=== PATIENT | female | born 1975 | race Caucasian/White ===

== ENCOUNTER 2020-08-31 14:41 | Inpatient (IN) ==
[2020-08-31] MEDS ORDERED: 0.9 % Sodium Chloride 1,000 ML IVC ONE (14:55)
[2020-08-31] MEDS ORDERED: Morphine Sulfate 2 MG/ML SYRINGE IVP ONE (15:05)
[2020-08-31] MEDS ORDERED: Isovue-370 500 ML BOTTLE IVP ONE (15:09)
[2020-08-31 15:15] LABS: Basophils % 0.4 %; Eosinophils # 0.3 K/mcL (0.0-0.6); Eosinophils % 3.2 %; Hemoglobin 13.7 g/dL (11.5-15.4); Immature Granulocytes % 0.4 % (0-4); Lymphocytes # 2.2 K/mcL (0.6-4.6); Lymphocytes % 22.2 %; Mean Corpuscular HGB Conc 33.4 g/dL (31.6-35.5); Mean Corpuscular Hemoglobin 31.4 pg (28.0-33.3); Mean Corpuscular Volume 93.8 fL (83.0-100.0); Mean Platelet Volume 9.7 fL (9.4-12.4); Monocytes # 0.8 K/mcL (0.0-1.3); Monocytes % 7.9 %; Neutrophils # 6.4 K/mcL (1.6-8.9); Platelet Count 214 K/mcL (140-400); Red Blood Count 4.37 M/mcL (3.82-4.97); Red Cell Distribution Width 13.8 % (11.5-14.5); Segmented Neutrophils % 65.9 %; White Blood Count 9.7 K/mcL (4.3-11.1)
[2020-08-31 15:23] LABS: INR 1.1; Prothrombin Time 12.7 Seconds (9.4-12.1)
[2020-08-31 15:26] LABS: Activated Partial Thrombo Time 31.2 Seconds (26.0-36.0)
[2020-08-31 15:51] LABS: Alanine Aminotransferase 29 Units/L (7-52); Albumin 4.3 g/dL (3.5-5.7); Albumin/Globulin Ratio 1.4 (1.1-2.2); Alkaline Phosphatase 129 Units/L (34-104); Aspartate Amino Transferase 24 Units/L (13-39); BUN/Creatinine Ratio 13 (6-26); Bilirubin,Indirect 0.4 mg/dL (0.0-1.0); Bilirubin,Total 0.4 mg/dL (0.3-1.0); Blood Urea Nitrogen 9 mg/dL (6-20); Calcium 9.5 mg/dL (8.6-10.3); Carbon Dioxide 26 mEq/L (23-29); Chloride 103 mEq/L (98-107); Globulin 3.1 g/dL (2.4-3.5); Glucose 154 mg/dL (70-105); Lipase 36 Units/L (11-82); Osmolality,Calculated 288 (280-300); Potassium 3.4 mEq/L (3.5-5.1); Sodium 138 mEq/L (136-145); Total Protein 7.4 g/dL (6.4-8.9); Troponin I < 0.03 ng/mL (< 0.04); eGFR For African Americans > 60 (> 60); eGFR For Non-African Americans > 60 (> 60)
[2020-08-31 16:37] LABS: Bacteria,Urine Few per hpf (None-Few); Mucus,Urine Few per lpf (None-Few); RBC,Urine 0-3 per hpf (0-3); Squamous Epithelial Cell,Urine Few per hpf (None-Few)
[2020-08-31 16:39] LABS: Bilirubin,Urine Negative (Negative); Clarity,Urine Clear (Clear); Color,Urine Yellow (Yellow); Glucose,Urine (UA) Normal (Normal); Ketones,Urine Negative (Negative); Specific Gravity,Urine 1.024 (1.010-1.025)
[2020-08-31 16:40] LABS: Blood,Urine Small (Negative); Leukocyte Esterase,Urine Negative (Negative); Nitrite,Urine Negative (Negative); Protein,Urine 50 mg/dL (Neg-Trace); Urobilinogen,Urine Normal (Normal)
[2020-08-31] MEDS ORDERED: Azithromycin 500 MG in 0.9 % Sodium Chloride 250 ML IVPB ONE (17:45)
[2020-08-31] MEDS ORDERED: cefTRIAXone 1,000 MG in 0.9 % Sodium Chloride Mini Bag 100 ML IVPB ONE (17:45)
[2020-08-31] MEDS ORDERED: Naloxone 0.4 MG/ML INJ IVP PRN (18:15)
[2020-08-31] MEDS ORDERED: Acetaminophen 325 MG TABLET PO PRN (18:15)
[2020-08-31] MEDS ORDERED: Ipratropium/Albuterol Neb 3 ML IH PRN (18:17)
[2020-08-31] MEDS ORDERED: Ondansetron 4 MG/2 ML VIAL IVP PRN (18:17)
[2020-08-31 18:22] LABS: Troponin I < 0.03 ng/mL (< 0.04)
[2020-08-31] MEDS ORDERED: CefTRIAXone 1,000 MG VIAL ONE (18:27)
[2020-08-31] MEDS ORDERED: Potassium Chloride Elixir 20 MEQ/15 ML UDC PO ONE (19:10)
[2020-08-31] MEDS: Ipratropium/Albuterol Neb 3 ML IH SCH ×2 (19:28→23:53)
[2020-08-31 19:46] LABS: Estimated Average Glucose 108 mg/dl; Hemoglobin A1C 5.4 %
[2020-08-31 19:46] LABS: Thyroid Stimulating Hormone 1.114 mcIU/mL (0.340-5.600)
[2020-08-31 19:48] LABS: Triiodothyronine (T3) Free 2.66 pg/mL (2.50-3.90)
[2020-08-31] MEDS: Azithromycin 500 MG in 0.9 % Sodium Chloride 250 ML IVPB SCH (20:32)
[2020-08-31] MEDS: Ketorolac 30 MG/ML VIAL IVP PRN (20:34)
[2020-08-31] MEDS ORDERED: Melatonin 3 MG TABLET PO PRN (21:00)
[2020-08-31] MEDS: *HR* OxyCODONE Immed Rel 5 MG TABLET PO PRN (21:47)
[2020-08-31] MEDS: Budesonide/Formoterol 80/4.5 1 PUFF INH IH SCH (22:09)
[2020-08-31 23:50] LABS: Adenovirus Not Detected (Not Detect); Bordetella Pertussis Not Detected (Not Detect); Chlamydophila pneumoniae Not Detected (Not Detect); Coronavirus 229E Not Detected (Not Detect); Coronavirus HKU1 Not Detected (Not Detect); Coronavirus NL63 Not Detected (Not Detect); Coronavirus OC43 Not Detected (Not Detect); Human Metapneumovirus Not Detected (Not Detect); Human Rhinovirus/Enterovirus Not Detected (Not Detect); Influenza A Subtype 2009 H1 Not Detected (Not Detect); Influenza B Not Detected (Not Detect); Mycoplasma pneumoniae Not Detected (Not Detect); Parainfluenza Virus 1 Not Detected (Not Detect); Parainfluenza Virus 2 Not Detected (Not Detect); Parainfluenza Virus 3 Not Detected (Not Detect); Parainfluenza Virus 4 Not Detected (Not Detect); Respiratory Syncytial Virus Not Detected (Not Detect); SARS-CoV-2 Not Detected (Not Detect)
[2020-09-01 02:17] LABS: Basophils # 0.1 K/mcL (0.0-0.2); Basophils % 0.5 %; Eosinophils # 0.3 K/mcL (0.0-0.6); Eosinophils % 3.4 %; Hematocrit 34.8 % (35.3-44.9); Hemoglobin 11.5 g/dL (11.5-15.4); Immature Granulocytes % 0.2 % (0-4); Lymphocytes # 2.1 K/mcL (0.6-4.6); Lymphocytes % 21.2 %; Mean Corpuscular Hemoglobin 30.9 pg (28.0-33.3); Mean Corpuscular Volume 93.5 fL (83.0-100.0); Mean Platelet Volume 9.5 fL (9.4-12.4); Monocytes # 0.8 K/mcL (0.0-1.3); Monocytes % 7.8 %; Neutrophils # 6.5 K/mcL (1.6-8.9); Platelet Count 188 K/mcL (140-400); Red Blood Count 3.72 M/mcL (3.82-4.97); Red Cell Distribution Width 13.9 % (11.5-14.5); Segmented Neutrophils % 66.9 %; White Blood Count 9.7 K/mcL (4.3-11.1)
[2020-09-01 02:37] LABS: Alanine Aminotransferase 23 Units/L (7-52); Albumin 3.5 g/dL (3.5-5.7); Albumin/Globulin Ratio 1.3 (1.1-2.2); Alkaline Phosphatase 100 Units/L (34-104); Aspartate Amino Transferase 19 Units/L (13-39); BUN/Creatinine Ratio 16 (6-26); Bilirubin,Total 0.4 mg/dL (0.3-1.0); Blood Urea Nitrogen 9 mg/dL (6-20); Calcium 8.4 mg/dL (8.6-10.3); Carbon Dioxide 25 mEq/L (23-29); Chloride 104 mEq/L (98-107); Globulin 2.7 g/dL (2.4-3.5); Glucose 88 mg/dL (70-105); Osmolality,Calculated 282 (280-300); Potassium 3.6 mEq/L (3.5-5.1); Sodium 137 mEq/L (136-145); Total Protein 6.2 g/dL (6.4-8.9); eGFR For African Americans > 60 (> 60); eGFR For Non-African Americans > 60 (> 60)
[2020-09-01] MEDS: Ketorolac 30 MG/ML VIAL IVP PRN ×2 (02:47→09:35)
[2020-09-01] MEDS: Ipratropium/Albuterol Neb 3 ML IH SCH ×5 (03:01→20:29)
[2020-09-01] MEDS: *HR* OxyCODONE Immed Rel 5 MG TABLET PO PRN ×3 (04:28→18:55)
[2020-09-01] MEDS: Budesonide/Formoterol 80/4.5 1 PUFF INH IH SCH ×2 (07:07→20:29)
[2020-09-01] MEDS: Nicotine 21 MG PATCH.TD24 TD SCH (09:22)
[2020-09-01] MEDS: cefTRIAXone 1,000 MG in Water for inj. (sterile) 10 ML IVP SCH (09:26)
[2020-09-01] MEDS: Gabapentin 400 MG CAPSULE PO SCH ×2 (15:11→21:41)
[2020-09-01] MEDS ORDERED: QUEtiapine Fumarate 300 MG TABLET PO PRN (15:18)
[2020-09-01] MEDS ORDERED: QUEtiapine Fumarate 300 MG TABLET PO SCH (21:00)
[2020-09-01] MEDS: Azithromycin 500 MG in 0.9 % Sodium Chloride 250 ML IVPB SCH (21:40)
[2020-09-01] MEDS: *HR* Buprenorphine HCl 8 MG TAB.SUBL SL SCH (21:41)
[2020-09-01] MEDS: QUEtiapine Fumarate 300 MG TABLET PO SCH (21:42)
[2020-09-02] MEDS: Ipratropium/Albuterol Neb 3 ML IH SCH ×6 (00:33→19:55)
[2020-09-02] MEDS: *HR* Buprenorphine HCl 8 MG TAB.SUBL SL SCH ×2 (07:49→20:26)
[2020-09-02] MEDS: *HR* OxyCODONE Immed Rel 5 MG TABLET PO PRN ×3 (07:50→21:37)
[2020-09-02] MEDS: cefTRIAXone 1,000 MG in Water for inj. (sterile) 10 ML IVP SCH (07:50)
[2020-09-02] MEDS: Nicotine 21 MG PATCH.TD24 TD SCH (07:50)
[2020-09-02] MEDS: Gabapentin 400 MG CAPSULE PO SCH ×3 (07:50→20:26)
[2020-09-02] MEDS: Budesonide/Formoterol 80/4.5 1 PUFF INH IH SCH ×2 (07:53→19:56)
[2020-09-02 08:11] LABS: Basophils % 0.4 %; Eosinophils # 0.3 K/mcL (0.0-0.6); Eosinophils % 3.9 %; Hematocrit 33.9 % (35.3-44.9); Immature Granulocytes % 0.2 % (0-4); Lymphocytes # 1.6 K/mcL (0.6-4.6); Lymphocytes % 19.2 %; Mean Corpuscular HGB Conc 32.4 g/dL (31.6-35.5); Mean Corpuscular Hemoglobin 30.7 pg (28.0-33.3); Mean Corpuscular Volume 94.7 fL (83.0-100.0); Mean Platelet Volume 9.7 fL (9.4-12.4); Monocytes # 0.5 K/mcL (0.0-1.3); Monocytes % 6.2 %; Neutrophils # 5.7 K/mcL (1.6-8.9); Platelet Count 216 K/mcL (140-400); Red Blood Count 3.58 M/mcL (3.82-4.97); Red Cell Distribution Width 13.8 % (11.5-14.5); Segmented Neutrophils % 70.1 %; White Blood Count 8.2 K/mcL (4.3-11.1)
[2020-09-02 08:15] LABS: BUN/Creatinine Ratio 14 (6-26); Blood Urea Nitrogen 8 mg/dL (6-20); Calcium 8.7 mg/dL (8.6-10.3); Carbon Dioxide 26 mEq/L (23-29); Chloride 104 mEq/L (98-107); Glucose 127 mg/dL (70-105); Osmolality,Calculated 284 (280-300); Potassium 3.5 mEq/L (3.5-5.1); Sodium 137 mEq/L (136-145); eGFR For African Americans > 60 (> 60); eGFR For Non-African Americans > 60 (> 60)
[2020-09-02] MEDS: Ketorolac 30 MG/ML VIAL IVP PRN (13:24)
[2020-09-02] MEDS: QUEtiapine Fumarate 300 MG TABLET PO SCH (20:25)
[2020-09-02] MEDS: Azithromycin 500 MG in 0.9 % Sodium Chloride 250 ML IVPB SCH (20:27)
[2020-09-03] MEDS: Ipratropium/Albuterol Neb 3 ML IH SCH ×7 (00:31→23:49)
[2020-09-03] MEDS: D5% in 0.45% NACL w KCl 20 MEQ/1,000 ML MLS IVC SCH ×2 (04:46→14:31)
[2020-09-03 06:17] LABS: Basophils # 0.1 K/mcL (0.0-0.2); Basophils % 0.6 %; Eosinophils # 0.5 K/mcL (0.0-0.6); Eosinophils % 4.7 %; Hematocrit 31.9 % (35.3-44.9); Hemoglobin 10.3 g/dL (11.5-15.4); Immature Granulocytes % 0.3 % (0-4); Lymphocytes % 20.1 %; Mean Corpuscular HGB Conc 32.3 g/dL (31.6-35.5); Mean Corpuscular Hemoglobin 30.5 pg (28.0-33.3); Mean Corpuscular Volume 94.4 fL (83.0-100.0); Mean Platelet Volume 9.6 fL (9.4-12.4); Monocytes # 0.5 K/mcL (0.0-1.3); Monocytes % 4.8 %; Neutrophils # 6.9 K/mcL (1.6-8.9); Platelet Count 224 K/mcL (140-400); Red Blood Count 3.38 M/mcL (3.82-4.97); Red Cell Distribution Width 13.7 % (11.5-14.5); Segmented Neutrophils % 69.5 %; White Blood Count 9.9 K/mcL (4.3-11.1)
[2020-09-03 06:51] LABS: BUN/Creatinine Ratio 12 (6-26); Blood Urea Nitrogen 7 mg/dL (6-20); Calcium 8.9 mg/dL (8.6-10.3); Carbon Dioxide 28 mEq/L (23-29); Chloride 104 mEq/L (98-107); Glucose 112 mg/dL (70-105); Osmolality,Calculated 285 (280-300); Potassium 3.5 mEq/L (3.5-5.1); Sodium 138 mEq/L (136-145); eGFR For African Americans > 60 (> 60); eGFR For Non-African Americans > 60 (> 60)
[2020-09-03] MEDS ORDERED: Ondansetron 4 MG/2 ML VIAL ONE (07:54)
[2020-09-03] MEDS ORDERED: *HR* FentaNYL (PF) 100 MCG/2 ML VIAL ONE (07:54)
[2020-09-03] MEDS ORDERED: Lidocaine -MPF 2% 2 ML VIAL ONE (07:54)
[2020-09-03] MEDS ORDERED: Ketorolac 30 MG/ML VIAL ONE (07:54)
[2020-09-03] MEDS ORDERED: Dexamethasone 4 MG/ML VIAL ONE (07:54)
[2020-09-03] MEDS ORDERED: *HR* Propofol 200 MG/20 ML VIAL IVP ONE (07:55)
[2020-09-03] MEDS ORDERED: *HR* Midazolam HCl 2 MG/2 ML VIAL ONE (07:55)
[2020-09-03] MEDS: Budesonide/Formoterol 80/4.5 1 PUFF INH IH SCH ×2 (08:08→19:57)
[2020-09-03] MEDS ORDERED: *HR* HYDROMORPHONE 2 MG/ML VIAL ONE (10:19)
[2020-09-03] MEDS ORDERED: Acetaminophen IV 1,000 MG/100 ML BAG IVPB ONE (12:16)
[2020-09-03] MEDS ORDERED: Ringers Solution, Lactated 1,000 ML ONE (12:19)
[2020-09-03] MEDS: *HR* HYDROmorphone (PF) 1 MG/ML SYRINGE IVP PRN ×2 (12:24→12:31)
[2020-09-03] MEDS: ceFAZolin 2,000 MG in Water for inj. (sterile) 20 ML IVP ONE ×2 (13:27→13:33)
[2020-09-03] MEDS: Nicotine 21 MG PATCH.TD24 TD SCH (13:31)
[2020-09-03] MEDS: Gabapentin 400 MG CAPSULE PO SCH ×3 (13:31→20:45)
[2020-09-03] MEDS: cefTRIAXone 1,000 MG in Water for inj. (sterile) 10 ML IVP SCH (13:32)
[2020-09-03] MEDS: *HR* Buprenorphine HCl 8 MG TAB.SUBL SL SCH ×2 (13:33→20:45)
[2020-09-03] MEDS: *HR* OxyCODONE Immed Rel 5 MG TABLET PO PRN ×2 (13:45→20:39)
[2020-09-03] MEDS ORDERED: D5% in 0.45% NACL w KCl 20 MEQ/1,000 ML MLS IVC SCH (14:29)
[2020-09-03] MEDS ORDERED: Ondansetron 4 MG/2 ML VIAL IVP PRN (14:29)
[2020-09-03] MEDS ORDERED: Acetaminophen 325 MG TABLET PO PRN (14:29)
[2020-09-03] MEDS ORDERED: Melatonin 3 MG TABLET PO PRN (14:29)
[2020-09-03] MEDS ORDERED: Naloxone 0.4 MG/ML INJ IVP PRN (14:29)
[2020-09-03] MEDS ORDERED: Nicotine 21 MG PATCH.TD24 TD SCH (14:29)
[2020-09-03] MEDS ORDERED: QUEtiapine Fumarate 300 MG TABLET PO PRN (14:29)
[2020-09-03] MEDS: Ketorolac 30 MG/ML VIAL IVP PRN (14:49)
[2020-09-03] MEDS ORDERED: Azithromycin 500 MG in 0.9 % Sodium Chloride 250 ML IVPB SCH (20:00)
[2020-09-03] MEDS ORDERED: QUEtiapine Fumarate 300 MG TABLET PO SCH (21:00)
[2020-09-04] MEDS: *HR* OxyCODONE Immed Rel 5 MG TABLET PO PRN ×3 (02:32→14:44)
[2020-09-04] MEDS: Ipratropium/Albuterol Neb 3 ML IH SCH ×4 (04:24→15:48)
[2020-09-04 06:23] LABS: Basophils % 0.2 %; Eosinophils # 0.1 K/mcL (0.0-0.6); Eosinophils % 0.5 %; Hematocrit 31.2 % (35.3-44.9); Hemoglobin 10.2 g/dL (11.5-15.4); Immature Granulocytes % 0.6 % (0-4); Lymphocytes # 1.1 K/mcL (0.6-4.6); Lymphocytes % 10.3 %; Mean Corpuscular HGB Conc 32.7 g/dL (31.6-35.5); Mean Corpuscular Hemoglobin 30.6 pg (28.0-33.3); Mean Corpuscular Volume 93.7 fL (83.0-100.0); Mean Platelet Volume 9.4 fL (9.4-12.4); Monocytes # 0.8 K/mcL (0.0-1.3); Monocytes % 6.9 %; Neutrophils # 8.8 K/mcL (1.6-8.9); Platelet Count 228 K/mcL (140-400); Red Blood Count 3.33 M/mcL (3.82-4.97); Red Cell Distribution Width 13.2 % (11.5-14.5); Segmented Neutrophils % 81.5 %; White Blood Count 10.8 K/mcL (4.3-11.1)
[2020-09-04 06:35] LABS: BUN/Creatinine Ratio 19 (6-26); Blood Urea Nitrogen 10 mg/dL (6-20); Calcium 8.8 mg/dL (8.6-10.3); Carbon Dioxide 28 mEq/L (23-29); Chloride 106 mEq/L (98-107); Glucose 141 mg/dL (70-105); Osmolality,Calculated 285 (280-300); Potassium 4.3 mEq/L (3.5-5.1); Sodium 137 mEq/L (136-145); eGFR For African Americans > 60 (> 60); eGFR For Non-African Americans > 60 (> 60)
[2020-09-04] MEDS: Gabapentin 400 MG CAPSULE PO SCH ×2 (07:35→14:44)
[2020-09-04] MEDS: *HR* Buprenorphine HCl 8 MG TAB.SUBL SL SCH (07:35)
[2020-09-04] MEDS: Ketorolac 30 MG/ML VIAL IVP PRN (07:35)
[2020-09-04] MEDS: Budesonide/Formoterol 80/4.5 1 PUFF INH IH SCH (08:38)
[2020-09-04] MEDS ORDERED: cefTRIAXone 1,000 MG in Water for inj. (sterile) 10 ML IVP SCH (09:00)
[2020-09-04] MEDS ORDERED: Nicotine 21 MG PATCH.TD24 TD SCH (09:00)
[2020-09-04 11:55] VITALS: BP 116/81
== END 2020-09-04 17:25 | disposition home or self-care (01) | DRG 137 ==
LOC: EMEROOARM 14:41 → 3BNU 14:41 → SUATTDRO 18:41 → 3BNU 19:46
PROVIDERS: ADMIT Internal Medicine; ATTEND Internal Medicine
PROC: GENSENT (ICD-10-PCS; 2020-09-03 09:00)

== ENCOUNTER 2021-12-02 11:52 | Observation (INO) ==
[2021-12-02] MEDS ORDERED: CeFAZolin Syr 2,000MG/20 ML 2,000 MG/20 ML SYRINGE IVPB ONE (12:04)
[2021-12-02] MEDS ORDERED: Ringers Solution, Lactated 1,000 ML IVC SCH (12:15)
[2021-12-02] MEDS ORDERED: *HR* Midazolam HCl 5 MG/5 ML VIAL IVP ONE (15:56)
[2021-12-02] MEDS ORDERED: Acetaminophen IV 1,000 MG/100 ML BAG IVPB ONE (17:11)
[2021-12-02] MEDS ORDERED: Ketorolac 30 MG/ML VIAL ONE (18:49)
[2021-12-02] MEDS ORDERED: Neostigmine Methylsulfate 3 MG/3 ML SYRINGE ONE (18:52)
[2021-12-02] MEDS ORDERED: Sugammadex Sodium 200 MG/2 ML VIAL IV ONE (19:09)
[2021-12-02] MEDS ORDERED: Ketorolac 30 MG/ML VIAL IVP PRN (19:43)
[2021-12-02] MEDS ORDERED: Ondansetron 4 MG/2 ML VIAL IVP PRN ×2 (19:43→21:38)
[2021-12-02] MEDS ORDERED: *HR* OxyCODONE Immed Rel 5 MG TABLET PO PRN (19:43)
[2021-12-02] MEDS: *HR* HYDROmorphone PF 0.5 MG/0.5 ML SYRINGE IVP PRN ×4 (19:45→20:25)
[2021-12-02] MEDS ORDERED: *HR* HYDROmorphone (PF) 1 MG/ML SYRINGE ONE ×2 (19:47→20:22)
[2021-12-02] MEDS ORDERED: Naloxone 0.4 MG/ML INJ IVP PRN (21:38)
[2021-12-02] MEDS: *HR* OxyCODONE/APAP 5/325 TABLET PO PRN (22:43)
[2021-12-02] MEDS: Gabapentin 400 MG CAPSULE PO SCH (22:44)
[2021-12-02] MEDS: Nicotine 21 MG PATCH.TD24 TD SCH (22:44)
[2021-12-02] MEDS: D5% in 0.45% NACL w KCl 20 MEQ/1,000 ML MLS IVC SCH (22:49)
[2021-12-02] MEDS: QUEtiapine Fumarate 300 MG TABLET PO PRN (22:50)
[2021-12-03] MEDS: Gabapentin 400 MG CAPSULE PO SCH ×3 (07:43→19:48)
[2021-12-03] MEDS: *HR* OxyCODONE/APAP 5/325 TABLET PO PRN ×4 (07:44→23:42)
[2021-12-03] MEDS: Nicotine 21 MG PATCH.TD24 TD SCH (07:45)
[2021-12-03] MEDS ORDERED: NON-FORMULARY MEDICATION 1 EACH EACH (Buprenorphine Hcl/Naloxone Hcl [Suboxone 8 Mg-2 Mg S SL SCH (11:45)
[2021-12-03] MEDS: *HR* Buprenorphine HCl 8 MG TAB.SUBL SL SCH ×2 (12:36→19:48)
[2021-12-03] MEDS: D5% in 0.45% NACL w KCl 20 MEQ/1,000 ML MLS IVC SCH ×2 (12:37→23:41)
[2021-12-03] MEDS: clonazePAM 1 MG TABLET PO PRN ×2 (15:02→23:07)
[2021-12-03] MEDS: Tiotropium 10 INH DOSE IH SCH (15:11)
[2021-12-03] MEDS: QUEtiapine Fumarate 300 MG TABLET PO PRN (21:23)
[2021-12-04] MEDS: *HR* OxyCODONE/APAP 5/325 TABLET PO PRN ×4 (04:04→22:34)
[2021-12-04] MEDS: Nicotine 21 MG PATCH.TD24 TD SCH (08:45)
[2021-12-04] MEDS: Gabapentin 400 MG CAPSULE PO SCH ×3 (08:45→21:13)
[2021-12-04] MEDS: *HR* Buprenorphine HCl 8 MG TAB.SUBL SL SCH ×2 (08:45→21:12)
[2021-12-04] MEDS: clonazePAM 1 MG TABLET PO PRN ×2 (09:00→17:41)
[2021-12-04] MEDS: Tiotropium 10 INH DOSE IH SCH (10:56)
[2021-12-04] MEDS: Budesonide/Formoterol 160/4.5 1 PUFF INH IH PRN ×2 (10:56→19:59)
[2021-12-04] MEDS: D5% in 0.45% NACL w KCl 20 MEQ/1,000 ML MLS IVC SCH (13:36)
[2021-12-04] MEDS: *HR* OxyCODONE Immed Rel 5 MG TABLET PO PRN ×2 (13:37→19:44)
[2021-12-04] MEDS: QUEtiapine Fumarate 300 MG TABLET PO PRN (21:15)
[2021-12-05] MEDS: D5% in 0.45% NACL w KCl 20 MEQ/1,000 ML MLS IVC SCH (03:16)
[2021-12-05] MEDS: *HR* OxyCODONE Immed Rel 5 MG TABLET PO PRN (04:24)
[2021-12-05] MEDS: Tiotropium 10 INH DOSE IH SCH (07:20)
[2021-12-05] MEDS: Budesonide/Formoterol 160/4.5 1 PUFF INH IH PRN (07:21)
[2021-12-05] MEDS: Gabapentin 400 MG CAPSULE PO SCH ×2 (07:30→15:31)
[2021-12-05] MEDS: *HR* Buprenorphine HCl 8 MG TAB.SUBL SL SCH (07:30)
[2021-12-05] MEDS: Nicotine 21 MG PATCH.TD24 TD SCH (07:30)
[2021-12-05] MEDS: clonazePAM 1 MG TABLET PO PRN (07:35)
[2021-12-05] MEDS: *HR* OxyCODONE/APAP 5/325 TABLET PO PRN (10:16)
[2021-12-05 15:32] VITALS: BP 125/78; PULSE 96; TEMP 98; O2SAT 91
== END 2021-12-05 16:54 | disposition home or self-care (01) ==
LOC: SAMDAY 11:52 → 3ANU 20:55 → INTOOBSV 12-05 09:20 → 3ANU 12-05 09:20
PROVIDERS: ADMIT Surgery; ATTEND Surgery

== ENCOUNTER 2021-12-20 17:05 | Observation (INO) ==
[2021-12-20] MEDS ORDERED: Iopamidol - 370 500 ML MLS IVP ONE (18:59)
[2021-12-20] MEDS ORDERED: *HR* HYDROmorphone (PF) 1 MG/ML SYRINGE IVP ONE (19:02)
[2021-12-20] MEDS ORDERED: Ondansetron 4 MG/2 ML VIAL IVP ONE (19:02)
[2021-12-20] MEDS ORDERED: 0.9 % Sodium Chloride 1,000 ML IVC ONE (19:05)
[2021-12-20 20:29] LABS: Basophils # 0.1 K/mcL (0.0-0.2); Basophils % 0.9 %; Eosinophils # 0.5 K/mcL (0.0-0.6); Eosinophils % 5.1 %; Hemoglobin 12.7 g/dL (11.5-15.4); Immature Granulocytes % 0.4 % (0-4); Lymphocytes # 2.6 K/mcL (0.6-4.6); Lymphocytes % 26.2 %; Mean Corpuscular HGB Conc 33.4 g/dL (31.6-35.5); Mean Corpuscular Hemoglobin 31.3 pg (28.0-33.3); Mean Corpuscular Volume 93.6 fL (83.0-100.0); Mean Platelet Volume 9.5 fL (9.4-12.4); Monocytes # 0.6 K/mcL (0.0-1.3); Monocytes % 6.1 %; Neutrophils # 6.1 K/mcL (1.6-8.9); Platelet Count 310 K/mcL (140-400); Red Blood Count 4.06 M/mcL (3.82-4.97); Red Cell Distribution Width 13.3 % (11.5-14.5); Segmented Neutrophils % 61.3 %
[2021-12-20 20:41] LABS: BUN/Creatinine Ratio 14 (6-26); Blood Urea Nitrogen 9 mg/dL (6-20); Carbon Dioxide 30 mEq/L (23-29); Chloride 102 mEq/L (98-107); Glucose 94 mg/dL (70-105); Osmolality,Calculated 286 (280-300); Potassium 3.5 mEq/L (3.5-5.1); Sodium 139 mEq/L (136-145); eGFR For African Americans > 60 (> 60); eGFR For Non-African Americans > 60 (> 60)
[2021-12-20] MEDS ORDERED: Morphine Sulfate 2 MG/ML SYRINGE IVP ONE (21:54)
[2021-12-20] MEDS ORDERED: Cefepime HCl 2,000 MG in 0.9 % Sodium Chloride 10 ML IVP ONE (22:07)
[2021-12-20] MEDS ORDERED: Vancomycin 1,750 MG/517.5 ML IV.SOLN IVPB ONE (23:00)
[2021-12-20] MEDS ORDERED: Nicotine 14 MG PATCH.TD24 TD PRN (23:30)
[2021-12-21] MEDS ORDERED: Morphine Sulfate 2 MG/ML SYRINGE IVP ONE (06:23)
[2021-12-21] MEDS ORDERED: Morphine Sulfate 2 MG/ML SYRINGE IVP PRN (06:25)
[2021-12-21] MEDS ORDERED: Ondansetron 4 MG/2 ML VIAL IVP PRN (15:05)
[2021-12-21] MEDS ORDERED: NON-FORMULARY MEDICATION 1 EACH EACH (Buprenorphine Hcl/Naloxone Hcl [Suboxone 8 Mg-2 Mg S SL SCH (15:05)
[2021-12-21] MEDS ORDERED: Budesonide/Formoterol 160/4.5 1 PUFF INH IH PRN (15:05)
[2021-12-21] MEDS ORDERED: Ibuprofen 800 MG TABLET PO PRN (15:05)
[2021-12-21] MEDS: methocarbamoL 500 MG TABLET PO SCH ×3 (15:45→23:12)
[2021-12-21] MEDS: *HR* Buprenorphine HCl 8 MG TAB.SUBL SL SCH ×2 (15:45→21:18)
[2021-12-21] MEDS: Letrozole 2.5 MG TABLET PO SCH (15:49)
[2021-12-21] MEDS: CeFAZolin 2 GM/120 ML BAG IVPB SCH ×2 (17:25→23:17)
[2021-12-21] MEDS: Acetaminophen 325 MG TABLET PO SCH ×2 (17:26→17:42)
[2021-12-21] MEDS ORDERED: Ibuprofen 600 MG TABLET PO SCH (21:00)
[2021-12-21] MEDS: Gabapentin 400 MG CAPSULE PO SCH (21:18)
[2021-12-21] MEDS ORDERED: Acetaminophen IV 1,000 MG/100 ML BAG IVPB ONE (23:02)
[2021-12-21] MEDS: QUEtiapine Fumarate 300 MG TABLET PO PRN (23:12)
[2021-12-21] MEDS: clonazePAM 1 MG TABLET PO PRN (23:12)
[2021-12-22] MEDS ORDERED: Ketorolac 30 MG/ML VIAL IVP ONE (03:11)
[2021-12-22 03:28] LABS: Hematocrit 30.7 % (35.3-44.9); Mean Corpuscular HGB Conc 33.2 g/dL (31.6-35.5); Mean Corpuscular Hemoglobin 31.1 pg (28.0-33.3); Mean Corpuscular Volume 93.6 fL (83.0-100.0); Mean Platelet Volume 9.5 fL (9.4-12.4); Platelet Count 232 K/mcL (140-400); Red Blood Count 3.28 M/mcL (3.82-4.97); Red Cell Distribution Width 13.1 % (11.5-14.5); White Blood Count 8.1 K/mcL (4.3-11.1)
[2021-12-22 03:29] LABS: Hemoglobin 10.2 g/dL (11.5-15.4)
[2021-12-22 03:53] LABS: BUN/Creatinine Ratio 13 (6-26); Blood Urea Nitrogen 8 mg/dL (6-20); Calcium 8.4 mg/dL (8.6-10.3); Carbon Dioxide 24 mEq/L (23-29); Chloride 104 mEq/L (98-107); Glucose 80 mg/dL (70-105); Osmolality,Calculated 279 (280-300); Potassium 3.3 mEq/L (3.5-5.1); Sodium 136 mEq/L (136-145); eGFR For African Americans > 60 (> 60); eGFR For Non-African Americans > 60 (> 60)
[2021-12-22] MEDS: Acetaminophen IV 1,000 MG/100 ML BAG IVPB SCH ×3 (06:37→16:50)
[2021-12-22] MEDS ORDERED: Potassium Chloride Elixir 20 MEQ/15 ML UDC PO ONE (06:45)
[2021-12-22] MEDS ORDERED: Tiotropium 10 INH DOSE IH ONE (08:03)
[2021-12-22] MEDS: Tiotropium 10 INH DOSE IH SCH (08:04)
[2021-12-22] MEDS: Letrozole 2.5 MG TABLET PO SCH (09:10)
[2021-12-22] MEDS: methocarbamoL 500 MG TABLET PO SCH ×2 (09:11→16:50)
[2021-12-22] MEDS: *HR* Buprenorphine HCl 8 MG TAB.SUBL SL SCH ×2 (09:11→21:29)
[2021-12-22] MEDS: Gabapentin 400 MG CAPSULE PO SCH ×3 (09:11→21:30)
[2021-12-22] MEDS: Nicotine 14 MG PATCH.TD24 TD SCH (09:12)
[2021-12-22] MEDS: clonazePAM 1 MG TABLET PO PRN ×2 (13:02→21:29)
[2021-12-22] MEDS: QUEtiapine Fumarate 300 MG TABLET PO PRN (21:28)
[2021-12-23] MEDS: methocarbamoL 500 MG TABLET PO SCH ×2 (00:23→08:27)
[2021-12-23] MEDS: Acetaminophen IV 1,000 MG/100 ML BAG IVPB SCH ×3 (00:23→11:12)
[2021-12-23 03:31] LABS: Hematocrit 31.7 % (35.3-44.9); Hemoglobin 10.4 g/dL (11.5-15.4); Mean Corpuscular HGB Conc 32.8 g/dL (31.6-35.5); Mean Corpuscular Volume 94.3 fL (83.0-100.0); Mean Platelet Volume 9.6 fL (9.4-12.4); Platelet Count 263 K/mcL (140-400); Red Blood Count 3.36 M/mcL (3.82-4.97); Red Cell Distribution Width 12.9 % (11.5-14.5); White Blood Count 11.5 K/mcL (4.3-11.1)
[2021-12-23 03:46] LABS: BUN/Creatinine Ratio 13 (6-26); Blood Urea Nitrogen 8 mg/dL (6-20); Calcium 8.1 mg/dL (8.6-10.3); Carbon Dioxide 28 mEq/L (23-29); Chloride 104 mEq/L (98-107); Glucose 103 mg/dL (70-105); Osmolality,Calculated 283 (280-300); Potassium 3.5 mEq/L (3.5-5.1); Sodium 137 mEq/L (136-145); eGFR For African Americans > 60 (> 60); eGFR For Non-African Americans > 60 (> 60)
[2021-12-23] MEDS: Tiotropium 10 INH DOSE IH SCH (08:14)
[2021-12-23 08:16] VITALS: O2SAT 92
[2021-12-23] MEDS: Gabapentin 400 MG CAPSULE PO SCH (08:27)
[2021-12-23] MEDS: Nicotine 14 MG PATCH.TD24 TD SCH (08:27)
[2021-12-23] MEDS: Letrozole 2.5 MG TABLET PO SCH (08:27)
[2021-12-23] MEDS: *HR* Buprenorphine HCl 8 MG TAB.SUBL SL SCH (08:27)
[2021-12-23] MEDS: clonazePAM 1 MG TABLET PO PRN (08:38)
[2021-12-23 11:17] VITALS: BP 116/75; PULSE 89; TEMP 97.5
== END 2021-12-23 14:38 | disposition home or self-care (01) ==
LOC: EMEROOARM 17:05 → 3ANU 17:05 → SUATTDRO 12-21 13:56 → 3ANU 12-21 15:00
PROVIDERS: ADMIT Surgery; ATTEND Surgery
PROC: IRDRAIN (2021-12-21 12:00)

== ENCOUNTER 2022-02-06 15:06 | Observation (INO) ==
[2022-02-06] MEDS ORDERED: Cefepime HCl 2,000 MG in 0.9 % Sodium Chloride 10 ML IVP ONE (17:29)
[2022-02-06] MEDS ORDERED: Ondansetron 4 MG/2 ML VIAL IVP ONE ×2 (17:29→20:58)
[2022-02-06] MEDS ORDERED: 0.9 % Sodium Chloride 1,000 ML IVC ONE (17:29)
[2022-02-06] MEDS ORDERED: Iopamidol - 370 500 ML MLS IVP ONE (17:29)
[2022-02-06] MEDS ORDERED: Morphine Sulfate 2 MG/ML SYRINGE IVP ONE (17:32)
[2022-02-06] MEDS ORDERED: Vancomycin 1,250 MG/262.5 ML IV.SOLN IVPB ONE (18:00)
[2022-02-06 18:07] LABS: Basophils # 0.1 K/mcL (0.0-0.2); Basophils % 0.6 %; Eosinophils # 0.3 K/mcL (0.0-0.6); Eosinophils % 2.8 %; Hematocrit 41.9 % (35.3-44.9); Hemoglobin 13.8 g/dL (11.5-15.4); Immature Granulocytes % 0.5 % (0-4); Lymphocytes % 18.5 %; Mean Corpuscular HGB Conc 32.9 g/dL (31.6-35.5); Mean Corpuscular Hemoglobin 30.9 pg (28.0-33.3); Mean Corpuscular Volume 93.7 fL (83.0-100.0); Mean Platelet Volume 9.8 fL (9.4-12.4); Monocytes # 0.7 K/mcL (0.0-1.3); Monocytes % 6.2 %; Neutrophils # 7.8 K/mcL (1.6-8.9); Platelet Count 247 K/mcL (140-400); Red Blood Count 4.47 M/mcL (3.82-4.97); Red Cell Distribution Width 13.2 % (11.5-14.5); Segmented Neutrophils % 71.4 %
[2022-02-06 18:27] LABS: BUN/Creatinine Ratio 11 (6-26); Blood Urea Nitrogen 9 mg/dL (6-20); Calcium 9.4 mg/dL (8.6-10.3); Carbon Dioxide 30 mEq/L (23-29); Chloride 102 mEq/L (98-107); Glucose 73 mg/dL (70-105); Osmolality,Calculated 283 (280-300); Potassium 3.5 mEq/L (3.5-5.1); Sodium 138 mEq/L (136-145)
[2022-02-06] MEDS ORDERED: predniSONE 20 MG TABLET PO ONE (19:53)
[2022-02-06] MEDS ORDERED: Ipratropium/Albuterol Neb 3 ML IH ONE (19:53)
[2022-02-06] MEDS ORDERED: Ketorolac 30 MG/ML VIAL IVP ONE (20:03)
[2022-02-06 20:32] LABS: VBG HCO3 26 mEq/L (21-27); VBG PCO2 56 mmHg (41-51); VBG PH 7.28 pH Units (7.32-7.42); VBG PO2 49 mmHg (25-50)
[2022-02-06] MEDS ORDERED: *HR* HYDROmorphone (PF) 1 MG/ML SYRINGE IVP ONE (21:17)
[2022-02-06] MEDS ORDERED: Acetaminophen 325 MG TABLET PO PRN (21:30)
[2022-02-06] MEDS ORDERED: Naloxone 0.4 MG/ML INJ IVP PRN (21:30)
[2022-02-06] MEDS ORDERED: Melatonin 3 MG TABLET PO PRN (21:30)
[2022-02-06] MEDS: Nicotine 21 MG PATCH.TD24 TD SCH (23:18)
[2022-02-06] MEDS: Piperacillin/Tazobactam 3.375 GM in 0.9 % Sodium Chloride Mini Bag 100 ML IVPB SCH (23:19)
[2022-02-06] MEDS: Budesonide/Formoterol 160/4.5 1 PUFF INH IH SCH (23:25)
[2022-02-07] MEDS ORDERED: Gabapentin 400 MG CAPSULE PO ONE (00:14)
[2022-02-07] MEDS: Ondansetron 4 MG/2 ML VIAL IVP PRN ×3 (04:08→19:46)
[2022-02-07] MEDS: *HR* Buprenorphine HCl 8 MG TAB.SUBL SL SCH ×3 (04:08→19:45)
[2022-02-07] MEDS: Ketorolac 30 MG/ML VIAL IVP PRN ×2 (05:00→15:27)
[2022-02-07] MEDS: Vancomycin 1,250 MG/262.5 ML IV.SOLN IVPB SCH ×2 (05:01→17:46)
[2022-02-07] MEDS: *HR* Enoxaparin 40 MG/0.4 ML SYRINGE SQ SCH (05:01)
[2022-02-07 05:09] LABS: Basophils % 0.5 %; Eosinophils # 0.1 K/mcL (0.0-0.6); Eosinophils % 1.2 %; Hematocrit 37.8 % (35.3-44.9); Hemoglobin 12.4 g/dL (11.5-15.4); Immature Granulocytes % 0.3 % (0-4); Lymphocytes # 0.8 K/mcL (0.6-4.6); Lymphocytes % 10.2 %; Mean Corpuscular HGB Conc 32.8 g/dL (31.6-35.5); Mean Corpuscular Hemoglobin 30.6 pg (28.0-33.3); Mean Corpuscular Volume 93.3 fL (83.0-100.0); Mean Platelet Volume 9.7 fL (9.4-12.4); Monocytes # 0.1 K/mcL (0.0-1.3); Monocytes % 1.4 %; Neutrophils # 6.8 K/mcL (1.6-8.9); Platelet Count 221 K/mcL (140-400); Red Blood Count 4.05 M/mcL (3.82-4.97); Red Cell Distribution Width 12.8 % (11.5-14.5); Segmented Neutrophils % 86.4 %; White Blood Count 7.8 K/mcL (4.3-11.1)
[2022-02-07 05:26] LABS: BUN/Creatinine Ratio 12 (6-26); Blood Urea Nitrogen 8 mg/dL (6-20); Carbon Dioxide 26 mEq/L (23-29); Chloride 107 mEq/L (98-107); Glucose 122 mg/dL (70-105); Osmolality,Calculated 288 (280-300); Potassium 3.9 mEq/L (3.5-5.1); Sodium 139 mEq/L (136-145)
[2022-02-07 05:28] LABS: Adenovirus Not Detected (Not Detect); Bordetella Pertussis Not Detected (Not Detect); Chlamydophila pneumoniae Not Detected (Not Detect); Coronavirus 229E Not Detected (Not Detect); Coronavirus HKU1 Not Detected (Not Detect); Coronavirus NL63 Not Detected (Not Detect); Coronavirus OC43 Not Detected (Not Detect); Human Metapneumovirus Not Detected (Not Detect); Human Rhinovirus/Enterovirus Not Detected (Not Detect); Influenza A Subtype 2009 H1 Not Detected (Not Detect); Influenza B Not Detected (Not Detect); Mycoplasma pneumoniae Not Detected (Not Detect); Parainfluenza Virus 1 Not Detected (Not Detect); Parainfluenza Virus 2 Not Detected (Not Detect); Parainfluenza Virus 3 Not Detected (Not Detect); Parainfluenza Virus 4 Not Detected (Not Detect); Respiratory Syncytial Virus Not Detected (Not Detect); SARS-CoV-2 Not Detected (Not Detect)
[2022-02-07 05:34] LABS: INR 1.1; Prothrombin Time 12.9 Seconds (9.4-12.1)
[2022-02-07] MEDS ORDERED: Tiotropium 10 INH DOSE IH ONE (08:04)
[2022-02-07] MEDS: Budesonide/Formoterol 160/4.5 1 PUFF INH IH SCH ×2 (08:07→20:26)
[2022-02-07] MEDS: Tiotropium 10 INH DOSE IH SCH (08:08)
[2022-02-07] MEDS: predniSONE 20 MG TABLET PO SCH (08:39)
[2022-02-07] MEDS: Piperacillin/Tazobactam 3.375 GM in 0.9 % Sodium Chloride Mini Bag 100 ML IVPB SCH ×3 (08:40→23:10)
[2022-02-07] MEDS: *HR* HYDROcodone/Acet 5/325 mg TABLET PO PRN ×2 (12:11→18:18)
[2022-02-07] MEDS ORDERED: *HR* HYDROmorphone (PF) 1 MG/ML SYRINGE IVP ONE (15:30)
[2022-02-07] MEDS: Multivit/Ca/Min/Fe/FA 1 TAB TABLET PO SCH (18:34)
[2022-02-07] MEDS: Cholecalciferol (D-3) 1,000 UNIT (25MCG) TABLET PO SCH (18:34)
[2022-02-07] MEDS: clonazePAM 1 MG TABLET PO PRN (18:34)
[2022-02-07] MEDS: Gabapentin 400 MG CAPSULE PO SCH ×2 (18:35→23:10)
[2022-02-07] MEDS: Letrozole 2.5 MG TABLET PO SCH (18:37)
[2022-02-07] MEDS: Nicotine 21 MG PATCH.TD24 TD SCH (23:10)
[2022-02-08] MEDS: *HR* HYDROcodone/Acet 5/325 mg TABLET PO PRN ×2 (04:57→13:05)
[2022-02-08] MEDS: clonazePAM 1 MG TABLET PO PRN ×2 (04:57→14:58)
[2022-02-08] MEDS: Vancomycin 1,250 MG/262.5 ML IV.SOLN IVPB SCH ×2 (05:09→18:05)
[2022-02-08] MEDS: *HR* Enoxaparin 40 MG/0.4 ML SYRINGE SQ SCH (05:09)
[2022-02-08] MEDS: Budesonide/Formoterol 160/4.5 1 PUFF INH IH SCH ×2 (07:41→22:01)
[2022-02-08] MEDS: Tiotropium 10 INH DOSE IH SCH (07:42)
[2022-02-08] MEDS: Piperacillin/Tazobactam 3.375 GM in 0.9 % Sodium Chloride Mini Bag 100 ML IVPB SCH ×2 (09:13→15:28)
[2022-02-08] MEDS: Multivit/Ca/Min/Fe/FA 1 TAB TABLET PO SCH (09:17)
[2022-02-08] MEDS: Cholecalciferol (D-3) 1,000 UNIT (25MCG) TABLET PO SCH (09:18)
[2022-02-08] MEDS: Gabapentin 400 MG CAPSULE PO SCH ×3 (09:18→20:09)
[2022-02-08] MEDS: Letrozole 2.5 MG TABLET PO SCH (09:18)
[2022-02-08] MEDS: predniSONE 20 MG TABLET PO SCH (09:18)
[2022-02-08] MEDS: *HR* Buprenorphine HCl 8 MG TAB.SUBL SL SCH ×2 (09:18→20:09)
[2022-02-08] MEDS: Ketorolac 30 MG/ML VIAL IVP PRN ×2 (13:06→21:56)
[2022-02-08] MEDS: Acetaminophen IV 1,000 MG/100 ML BAG IVPB SCH ×2 (14:57→18:40)
[2022-02-08] MEDS ORDERED: Lidocaine Jelly 6ml 1 APPL/6 ML JEL.PF.APP TP PRN (15:08)
[2022-02-08] MEDS: Nicotine 21 MG PATCH.TD24 TD SCH (18:04)
[2022-02-08] MEDS: Ondansetron 4 MG/2 ML VIAL IVP PRN (18:20)
[2022-02-09] MEDS: Piperacillin/Tazobactam 3.375 GM in 0.9 % Sodium Chloride Mini Bag 100 ML IVPB SCH ×2 (00:30→09:49)
[2022-02-09] MEDS: Acetaminophen IV 1,000 MG/100 ML BAG IVPB SCH ×3 (04:37→09:43)
[2022-02-09] MEDS: Vancomycin 1,250 MG/262.5 ML IV.SOLN IVPB SCH (05:44)
[2022-02-09] MEDS: *HR* Enoxaparin 40 MG/0.4 ML SYRINGE SQ SCH (05:45)
[2022-02-09] MEDS: Tiotropium 10 INH DOSE IH SCH (08:12)
[2022-02-09] MEDS: Budesonide/Formoterol 160/4.5 1 PUFF INH IH SCH (08:12)
[2022-02-09] MEDS ORDERED: Doxycycline 100 MG CAPSULE PO SCH (09:00)
[2022-02-09] MEDS: Ketorolac 30 MG/ML VIAL IVP PRN ×2 (09:18→14:58)
[2022-02-09] MEDS: *HR* Buprenorphine HCl 8 MG TAB.SUBL SL SCH (09:22)
[2022-02-09] MEDS: Multivit/Ca/Min/Fe/FA 1 TAB TABLET PO SCH (09:23)
[2022-02-09] MEDS: clonazePAM 1 MG TABLET PO PRN (09:23)
[2022-02-09] MEDS: Gabapentin 400 MG CAPSULE PO SCH ×2 (09:23→14:58)
[2022-02-09] MEDS: predniSONE 20 MG TABLET PO SCH (09:23)
[2022-02-09] MEDS: Cholecalciferol (D-3) 1,000 UNIT (25MCG) TABLET PO SCH (09:23)
[2022-02-09] MEDS: Ondansetron 4 MG/2 ML VIAL IVP PRN (09:36)
[2022-02-09] MEDS: Letrozole 2.5 MG TABLET PO SCH (09:36)
[2022-02-09 11:57] VITALS: BP 132/86; PULSE 80; TEMP 97.6
[2022-02-09 12:58] VITALS: O2SAT 93
== END 2022-02-09 17:14 | disposition home health service (06) ==
LOC: 3BNU 15:06 → EMEROOARM 15:06 → SUATTDRO 22:00 → 3BNU 22:05
PROVIDERS: ADMIT Internal Medicine; ATTEND Internal Medicine